=== PATIENT | female | born 1975 | race Caucasian/White ===

== ENCOUNTER → 2017-05-31 23:25 | Outpatient (CLI) | payer MEDICAID, SELFPAY | PROVIDERS: Family Provider Family Medicine; PCP Family Medicine; Visit Provider Family Medicine | DX: G47.10 Hypersomnia, unspecified (principal); R06.83 Snoring | CPT/HCPCS: 95810 ==

== ENCOUNTER → 2017-06-14 20:23 | Outpatient (CLI) | payer MEDICAID, SELFPAY | PROVIDERS: Family Provider Family Medicine; PCP Family Medicine; Visit Provider Family Medicine | DX: G47.33 Obstructive sleep apnea (adult) (pediatric) (principal); G47.10 Hypersomnia, unspecified; R06.83 Snoring | CPT/HCPCS: 95811 ==

== ENCOUNTER → 2017-07-01 18:54 | Outpatient (CLI) | payer MEDICAID, SELFPAY | PROVIDERS: Family Provider Family Medicine; PCP Family Medicine; Visit Provider Nurse Practitioner Women's Health | DX: N76.0 Acute vaginitis (principal); N89.8 Other specified noninflammatory disorders of vagina | CPT/HCPCS: 87070; 87086; 87088; 87205 ==

== ENCOUNTER 2017-10-14 02:34 | Emergency (ER) | payer MEDICAID, SELFPAY ==
[2017-10-14 02:34] VITALS: BP 124/87; PULSE 67; RESP 16; TEMP 36.7; O2SAT 100; BMI 28.5
--- NOTE | 2017-10-14 04:04 | ED.DEP ---
ED Disposition - Plan for ED Patient: Chief Complaint: Dental Instructions: ED Tooth Pain Prescriptions: Oxycodone HCl/Acetaminophen [Percocet 5/325] 1 tablet PO Q6H PRN PRN 3 Days #8 tablet PRN Reason: Pain Referrals: Hollie Salazar DO [Primary Care Provider] -
--- NOTE | 2017-10-14 04:08 | ED.DCSUM_ITS ---
- ER Visit Summary Date of Service: 10/14/17 Chief Complaint: Dental pain History of Present Illness: The patient is a 42 F presenting with dental pain. She states it started on . She called her dentist and was put on amoxicillin. She states she took a Vicodin which she had left over at home. She states this did not help her pain. She denies fever or swelling. She is concerned about possibility of an abscessed tooth. Denies other complaints. Physical Examination: Vitals are stable. Patient is afebrile. Alert no acute distress. HEENT exam left lower molar tenderness to palpation with no surrounding fluctuance. No sublingual edema. Neck is supple. Lungs are clear and equal bilaterally. Heart is regular rate and rhythm. Extremities are unremarkable. Skin is warm and dry. Remainder of exam is unremarkable. Emergency Department Course and Treatment: Dental block was performed. Patient had some improvement. She is advised to continue her amoxicillin until complete. She is given a short course of Percocet. Advised to follow-up with her dentist. Advised return to ED if worsening complaints. Disposition: Discharge home Impression: Odontalgia This note was generated with [employer] dictation software. It may contain incorrect words, spelling, and punctuation that were not noted in review of the chart prior to signing ED Disposition - Plan for ED Patient: Chief Complaint: Dental Instructions: ED Tooth Pain Prescriptions: Oxycodone HCl/Acetaminophen [Percocet 5/325] 1 tablet PO Q6H PRN PRN 3 Days #8 tablet PRN Reason: Pain Referrals: Hollie Salazar DO [Primary Care Provider] -
[2017-10-14 04:24] VITALS: BP 120/80; PULSE 65; RESP 17; O2SAT 99
[2017-10-14] MEDS: oxyCODONE 5 MG Tablet PO (04:31)
== END 2017-10-14 04:32 | disposition home or self-care (01) ==
LOC: ED 03:38
PROVIDERS: Emergency Provider Emergency Medicine; Family Provider Family Medicine; PCP Family Medicine
DX: K08.89 Other specified disorders of teeth and supporting structures (principal); Z79.899 Other long term (current) drug therapy
CPT/HCPCS: 64402; 99283

== ENCOUNTER 2018-03-04 10:58 | Emergency (ER) | payer SELFPAY ==
[2018-03-04] VITALS (10 sets, daily range): BP systolic 102–139; BP diastolic 68–73; PULSE 60–94; RESP 14–18; TEMP 36.6; O2SAT 96–100; BMI 27.4
[2018-03-04 11:28] LABS: Absolute Lymphocyte Count 1.32 X10^3/ul (0.83-4.51); Absolute Neutrophil Count 3.3 X10^3/uL (2.0-7.7); Basophil# 0.01 X10^3/uL; Basophil% 0.2 % (0-1); Eosinophil# 0.11 X10^3/uL; Eosinophils% 2.2 % (0-5); Hematocrit 43.1 % (37-47); Hemoglobin 14.6 g/dl (12.0-15.0); Lymphocyte # 1.32 X10^3/ul (4.0); Mean Corp Hgb Conc 33.9 g/gl (32-36); Mean Corpuscular Volume 94.5 fL (81-99); Mean Platelet Vol. 10.2 fl (6.2-12.0); Monocyte# 0.34 X10^3/uL; Monocyte% 6.7 % (0-10); Neutrophil # 3.29 X10^3/uL (2.7-7.7); Neutrophil % 64.7 % (47-70); Platelet Count 227 K/mm3 (150-450); RBC Distribution Width CV 13.2 % (11.6-14.6); RBC Distribution Width SD 43.9 fl (35.1-43.9); Red Blood Count 4.56 M/mm3 (4.2-5.4); White Blood Count 5.1 K/mm3 (4.4-11.0)
[2018-03-04 11:31] LABS: POSITIVE COUNT NO; POSITIVE DIFFERENTIAL NO; POSITIVE MORPHOLOGY NO
[2018-03-04 11:41] LABS: Anion Gap 5 (5-15); BUN 9 mg/dL (7-18); Calcium,Total 8.9 mg/dL (8.5-10.1); Chloride 105 mmol/L (98-107); Creatinine, Serum 0.82 mg/dL (0.55-1.02); EST Glomerular Filtration Rate 82 mL/min (>60); Est Glom Filt Rate - Afr Amer 100 mL/min (>60); Estimated Creatinine Clearance 78.75 ml/min; Glucose 122 mg/dL (74-106); Potassium 3.6 mmol/L (3.5-5.1); Sodium Level 137 mmol/L (136-145)
[2018-03-04 12:06] LABS: Alcohol, Blood (Medical)-Serum < 3.0 mg/dL
[2018-03-04 13:00] LABS: Amphetamine Urine VISTA NEGATIVE (<1000 ng/mL); Barbiturate Urine VISTA NEGATIVE (< 200 ng/mL); Benzodiazepine Urine VISTA NEGATIVE (< 200 ng/mL); Cocaine Urine VISTA NEGATIVE (< 300 ng/mL); Ecstacy Urine VISTA POSITIVE (< 500 ng/mL); Methadone Urine VISTA NEGATIVE (< 300 ng/mL); PCP Urine VISTA NEGATIVE (< 25 ng/mL); THC Urine VISTA NEGATIVE (< 50 ng/mL); Vista UDS pH Range 6
[2018-03-04 13:04] LABS: Pregnancy, Serum, hCG Quali. NEGATIVE Negative (0-9 Nonpreg)
--- NOTE | 2018-03-04 13:09 | ED.RN ---
GRACE WITH CRISIS WILL BE OVER TO EVAL THE PT.
--- NOTE | 2018-03-04 13:49 | ED.VISSUMM ---
- ER Visit Summary Date of Service: 03/04/18 Chief Complaint: Depression with suicidal ideation History of Present Illness: The patient is a 42 F who has history of depression since age of 17. She attempted to commit suicide by overdose at the age of 17. She was hospitalized at that time. She is not been hospitalized since. She states symptoms got worse December 22. On December 22 her 18-year-old daughter moved out of the house and is not spoken with her. She was terminated from her job early January. Past 24 hours she has had suicidal thoughts with intent of overdosing, getting in her car and closing the garage. She also states she would purchase fentanyl to commit suicide. She is . She is been for 10 years. She does have a 19-year-old daughter from first marriage who is presently a college. She denies drug use or alcohol use. She reports her has been supportive. She was at a counseling session prior to arrival. She was brought by her casey saw operator because of what was voiced. Physical Examination: Vital signs noted. When I entered the room patient was in hospital gown. She is tearful. She admits to being depressed. There is poverty of speech. She reports disruption in sleep and eating. She is asking for help. She was informed that she will require hospitalization. She understands. Head is atraumatic normocephalic. Pupils are equal round reactive. Extraocular muscles are intact. TMs are pearly white with landmarks noted. Nares patent with no drainage. Posterior pharynx without erythema or exudate. Uvula is midline. There is no dysphonia or dysphasia. Trachea is midline. There is no stridor with auscultation of the neck. Heart is regular without murmur, gallop or rub. S1 and S2 are normal. Lungs are clear to auscultation with good movement of air bilaterally. Abdomen is soft nontender bowel sounds are present normal. Patient is alert and oriented ?3. Motor is 5 over 5. Sensory is intact. DTRs are symmetric with no clonus or Babinski sign. Cranial 2 through 12 are intact. Cerebellar testing is normal. No evidence of self injury prior or recently. Test Results: CBC, basic metabolic panel are normal. was normal which one would expect and she is status post hysterectomy. Alcohol was negative. Tox was positive for methamphetamine. This may be a false positive secondary to Wellbutrin. Also will need to ask if she has taken any [id number] medications for nasal congestion Emergency Department Course and Treatment: Appropriate labs, history and physical for medical clearance for psychiatric admission for depression with suicide ideation Treatment Plan: Mental health clinical social work therapist to see patient for inpatient care Disposition: Transfer to psychiatric facility Impression: Major depression with suicidal ideation This note was generated with [employer] dictation software. It may contain incorrect words, spelling, and punctuation that were not noted in review of the chart prior to signing ED Disposition - Plan for ED Patient: Chief Complaint: Suicidal Referrals: Hollie Salazar DO [Primary Care Provider] -
--- NOTE | 2018-03-04 13:53 | ED.DCSUM_ITS ---
- ER Visit Summary Date of Service: 03/04/18 Chief Complaint: Depression with suicidal ideation History of Present Illness: The patient is a 42 F who has history of depression since age of 17. She attempted to commit suicide by overdose at the age of 17. She was hospitalized at that time. She is not been hospitalized since. She states symptoms got worse December 22. On December 22 her 18-year-old daughter moved out of the house and is not spoken with her. She was terminated from her job early January. Past 24 hours she has had suicidal thoughts with intent of overdosing, getting in her car and closing the garage. She also states she would purchase fentanyl to commit suicide. She is . She is been for 10 years. She does have a 19-year-old daughter from first marriage who is presently a college. She denies drug use or alcohol use. She reports her has been supportive. She was at a counseling session prior to arrival. She was brought by her heel caser because of what was voiced. Physical Examination: Vital signs noted. When I entered the room patient was in hospital gown. She is tearful. She admits to being depressed. There is poverty of speech. She reports disruption in sleep and eating. She is asking for help. She was informed that she will require hospitalization. She understands. Head is atraumatic normocephalic. Pupils are equal round reactive. Extraocular muscles are intact. TMs are pearly white with landmarks noted. Nares patent with no drainage. Posterior pharynx without erythema or exudate. Uvula is midline. There is no dysphonia or dysphasia. Trachea is midline. There is no stridor with auscultation of the neck. Heart is regular without murmur, gallop or rub. S1 and S2 are normal. Lungs are clear to auscultation with good movement of air bilaterally. Abdomen is soft nontender bowel sounds are present normal. Patient is alert and oriented ?3. Motor is 5 over 5. Sensory is intact. DTRs are symmetric with no clonus or Babinski sign. Cranial 2 through 12 are intact. Cerebellar testing is normal. No evidence of self injury prior or recently. Test Results: CBC, basic metabolic panel are normal. was normal which one would expect and she is status post hysterectomy. Alcohol was negative. Tox was positive for methamphetamine. This may be a false positive secondary to Wellbutrin. Also will need to ask if she has taken any tzoc-kiz-eluxvur me dications for nasal congestion Emergency Department Course and Treatment: Appropriate labs, history and physical for medical clearance for psychiatric admission for depression with suicide ideation Treatment Plan: Mental health social work therapist to see patient for inpatient care Disposition: Transfer to psychiatric facility Impression: Major depression with suicidal ideation This note was generated with [employer] dictation software. It may contain incorrect words, spelling, and punctuation that were not noted in review of the chart prior to signing ED Disposition - Plan for ED Patient: Chief Complaint: Suicidal Referrals: Hollie Salazar DO [Primary Care Provider] -
--- NOTE | 2018-03-04 18:46 | EKG12_ITS ---
Test Reason : [facility] [place] Blood Pressure : / mmHG Vent. Rate : 074 BPM Atrial Rate : 074 BPM P-R Int : 152 ms QRS Dur : 088 ms QT Int : 380 ms P-R-T Axes : 055 047 049 degrees QTc Int : 421 ms Normal sinus rhythm Normal ECG Confirmed by MASON TELLO, ROLANDO ([id number]), fashion editor KRANTHI GARCIA ([id number] on 03/07/2018 2:18:50 PM Referred By: OLIVE LYNN/WILFRIDO Confirmed By:ROLANDO CUEVAS MD
--- NOTE | 2018-03-04 19:18 | ED.RN ---
PT IS ON CELL PHONE TALKING TO SPOUSE AND REQUESTED A FINGER NAIL FILE TO SMOOTH AN EDGE ON A NAIL. THIS NURSE OVERHEARD PT AND EXPLAINED THAT SHE MAY HAVE A BAND-AID TO COVER THE NAIL TO PROTECT IT FROM SNAGGING, BUT NO FINGER NAIL FILE WILL BE ALLOWED. PT VERBALIZED ADEQUATE UNDERSTANDING AND REFUSED BAND-AID.
[2018-03-04 19:21] LABS: AST(SGOT) 17 U/L (15-37); Alanine Aminotransfer ALT/SGPT 30 U/L (13-56); Alkaline Phosphatase 50 U/L (45-117); Bilirubin, Direct 0.15 mg/dL (0.00-0.30); Globulin 3.8 g/dL (2.2-4.2); Protein, Total 7.8 g/dL (6.4-8.2)
--- NOTE | 2018-03-04 20:54 | ED.RN ---
CALLED FOR TRANSPORT TO [facility], PER CHUY NASH HAS AN AGREEMENT TO TRANSPORT PATIENTS WITHOUT INSURANCE, AFTER BEING REQUIRED TO CONFIRM THIS BY GRAZYNA NASH, THEY DECLINED TO TAKE INFORMATION OR SCHEDULE A TRANSPORT UNTIL THE MORNING OF 03/05/18.
[2018-03-04] MEDS: clonazePAM 1 MG Tablet PO (21:17)
--- NOTE | 2018-03-04 21:26 | ED.RN ---
Addendum entered by Wong Archuleta 03/04/18 22:05: deleted care and insert car in line there of paragraph. mick archuleta rn [id number] Original Note: pt arrives to ed with suicidal ideation. she states that I have multiple idea, but no set plan. After asked for clarification she stated I would leave the care running in the garage or I could get that fentanyl stuff you hear about on the street. afterwards she stated i wouldn't be able to find the fentanyl. she admitted that she talks to her about these thoughts. tried to hurt her self by ingesting her fathers sleeping pills at age 17. per pt the cause to her current mental health crisis is loss of contact with her 18 year old daughter. child left home due to a strained relationship per mother. she also lost her job due to calling off to often per pt. mick archuleta, carlin [id number]
--- NOTE | 2018-03-04 22:06 | ED.RN ---
PT'S BROUGHT IN CLOTHING FOR PT WHEN SHE IS TRANSFERRED TO [facility]. CLOTHING REMOVED FROM PT'S ROOM AND PLACED IN BELONGING TOTE.
[2018-03-05] VITALS (8 sets, daily range): BP systolic 107–124; BP diastolic 70–79; PULSE 66–87; RESP 12–18; O2SAT 97–100
[2018-03-05] MEDS: Acetaminophen 500 MG Tablet 1000 MG PO (01:13)
--- NOTE | 2018-03-05 07:56 | ED.RN ---
Pt alert, cooperative, and pleasant. Given coffee and aware waiting for ride. Sitter present.
--- OUTSIDE RECORDS SUMMARY | 2018-04-16 04:01 | XMS RPT_ITS ---
:1975 Author Organization OHIP Care Team Providers Name Role Phone Hollie Salazar Attending Unavailable Malys, Hollie Primary Care Unavailable Malys, Hollie Attending Unavailable Malys, Hollie Primary Care Unavailable Pam Rucker Attending Unavailable Bernardinoys, Hollie Referring Unavailable Malys, Hollie Primary Care Unavailable Pam Rucker Attending Unavailable Bernardinoys, Hollie Primary Care Unavailable Pam Rucker Referring Unavailable Malys, Hollie Primary Care Unavailable Rosalba Alex Attending Unavailable Malys, Hollie Primary Care Unavailable Neal Lynn Attending Unavailable PROBLEMS PROBLEMS DATE TYPE CONDITION / CODE ATTENDING STATUS SOURCE 11/12/2017 Unknown K08.89 - Other [place], Active [place] specified disorders [facility] and Hospital supporting structures Repository / K08.89(ICD-10) 07/04/2017 Unknown N76.0 - Acute [place], Pam Active [place] vaginitis / Community N76.0(ICD-10) Hospital Repository 07/04/2017 Unknown N89.8 - Other [place], Pam Active [facility] specified [facility] noninflammatory [facility] disorders of vagina / Repository N89.8(ICD-10) 07/01/2017 Unknown R30.0 - Dysuria / [place], Pam Active [place] R30.0(ICD-10) [facility] Repository PROCEDURES PROCEDURES No Procedure Records FoundRESULTS RESULTS 12 LEAD ELECTROCARDIOGRAM Observed: 03/07/2018 Status: F Source: [place] 2:19 PM [facility] REPOSITORY [facility] Cardiovascular Services [address] [place] [address] 12 Lead EKG 03/04/18 1851 MR#: [id number] Acct: [id number] Name: YU CALDWELL Rep #: [id number] : 1975 42 From: Yonathan Ennis MD Attending Dr: Status: DEP ER Ordering Dr: Harjit Bajwa MD Date: 03/04/18 Location: ED Sex: F C Admitted: Test Reason : MHC Blood Pressure : / mmHG Vent. Rate : 074 BPM Atrial Rate : 074 BPM P-R Int : 152 ms QRS Dur : 088 ms QT Int : 380 ms P-R-T Axes : 055 047 049 degrees QTc Int : 421 ms Normal sinus rhythm Normal ECG Confirmed by YONATHAN ENNIS MD ([id number]), news copy editor KRANTHI GARCIA ([id number]) on 03/07/2018 2:18:50 PM Referred By: OLIVE LYNN/WILFRIDO Confirmed By:YONATHAN ENNIS MD 03/07/18 1418 Date Yonathan Ennis MD CC: Harjit Bajwa MD; Hollie Salazar DO; Neal Lynn MD Signed EMERGENCY DEPARTMENT Observed: 03/04/2018 Status: F Source: [place] SUMMARY 1:53 PM [facility] REPOSITORY [facility] Medical Records Department [address] [place] [address] Emergency Department Summary 03/04/18 1349 MR#: [id number] Acct: [id number] Name: YU CALDWELL Rep #: [id number] : 1975 42 From: Neal Lynn MD PCP: Hollie Salazar DO Status: REG ER - ER Visit Summary Date of Service: 03/04/18 Chief Complaint: Depression with suicidal ideation History of Present Illness: The patient is a 42 F who has history of depression since age of 17. She attempted to commit suicide by overdose at the age of 17. She was hospitalized at that time. She is not been hospitalized since. She states symptoms got worse December 22. On December 22 her 18-year-old daughter moved out of the house and is not spoken with her. She was terminated from her job early January. Past 24 hours she has had suicidal thoughts with intent of overdosing, getting in her car and closing the garage. She also states she would purchase fentanyl to commit suicide. She is . She is been for 10 years. She does have a 19-year-old daughter from first marriage who is presently a college. She denies drug use or alcohol use. She reports her has been supportive. She was at a counseling session prior to arrival. She was brought by her returned case inspector because of what was voiced. Physical Examination: Vital signs noted. When I entered the room patient was in hospital gown. She is tearful. She admits to being depressed. There is poverty of speech. She reports disruption in sleep and eating. She is asking for help. She was informed that she will require hospitalization. She understands. Head is atraumatic normocephalic. Pupils are equal round reactive. Extraocular muscles are intact. TMs are pearly white with landmarks noted. Nares patent with no drainage. Posterior pharynx without erythema or exudate. Uvula is midline. There is no dysphonia or dysphasia. Trachea is midline. There is no stridor with auscultation of the neck. Heart is regular without murmur, gallop or rub. S1 and S2 are normal. Lungs are clear to auscultation with good movement of air bilaterally. Abdomen is soft nontender bowel sounds are present normal. Patient is alert and oriented 3. Motor is 5 over 5. Sensory is intact. DTRs are symmetric with no clonus or Babinski sign. Cranial 2 through 12 are intact. Cerebellar testing is normal. No evidence of self injury prior or recently. Test Results: CBC, basic metabolic panel are normal. was normal which one would expect and she is status post hysterectomy. Alcohol was negative. Tox was positive for methamphetamine. This may be a false positive secondary to Wellbutrin. Also will need to ask if she has taken any [id number] medications for nasal congestion Emergency Department Course and Treatment: Appropriate labs, history and physical for medical clearance for psychiatric admission for depression with suicide ideation Treatment Plan: Mental health social and political studies professor to see patient for inpatient care Disposition: Transfer to psychiatric facility Impression: Major depression with suicidal ideation This note was generated with Hango dictation software. It may contain incorrect words, spelling, and punctuation that were not noted in review of the chart prior to signing ED Disposition - Plan for ED Patient: Chief Complaint: Suicidal Referrals: Hollie Salazar, DO [Primary Care Provider] - What to do if you have Problems For any increased pain, shortness of breath, bleeding, nausea or vomiting, chest pain, or any unexpected problems, contact your Primary Care Provider. Call [facility] ([phone]) or report to the closest Emergency Room. Call 911 if necessary. 03/04/18 1353 <Electronically signed by Neal Lynn MD> Date Neal Lynn MD Cosigner Signature (If Indicated): Date CC: Hollie Salazar DO URINE DRUG SCREEN Collected: 03/04/2018 Status: F Source: [place] (VISTA) 12:07 PM [facility] REPOSITORY TYPE CODE TESTS RESULT OUT OF RANGE REFERENCE UNITS LAB L505.0075 TO BE Normal CONFIRMED Result Comment: CONFIRMATORY TESTING FOR ALL POSITIVE URINE DRUG SCREEN RESULTS WILL ONLY BE SENT OUT UPON PHYSICIAN ORDER. VISTA Urine Drug Screen methods provide only preliminary analytical test results. A more specific alternate chemical method must be used in order to obtain a confirmed analytical result. Gas chromatography/mass spectrometery (GC/MS) is the preferred confirmatory method. Clinical consideration and professional judgement should be applied to any drug of abuse test result, particularly when preliminary positive results are used. URINE TCA TESTING MUST BE ORDERED SEPARATELY. USE TEST MNEMONIC: [facility] LAB L505.5005 VISTA UDS PH 6 Normal LAB L505.5015 <1000 ng/mL AMPHETAMINES Normal NEGATIVE LAB L505.5025 < 200 ng/mL BARBITIURATES Normal NEGATIVE LAB L505.5035 < 200 ng/mL BENZODIAZIPINE Normal NEGATIVE LAB L505.5045 < 300 ng/mL COCAINE Normal NEGATIVE LAB L505.5055 < 500 High ng/mL ECSTACY POSITIVE LAB L505.5065 < 300 ng/mL METHADONE Normal NEGATIVE LAB L505.5075 < 300 ng/mL OPIATES Normal NEGATIVE LAB L505.5085 < 25 ng/mL PCP Normal NEGATIVE LAB L505.5095 < 50 ng/mL THC Normal NEGATIVE Performed By: #### L505.5000 #### [facility] [address] [place], [address] CBC W/DIFF, AUTOMATED Collected: 03/04/2018 Status: F Source: [place] 11:15 AM [facility] REPOSITORY TYPE CODE TESTS RESULT OUT OF RANGE REFERENCE UNITS LAB L100.1000 4.4-11.0 K/mm3 Normal WBC 5.1 LAB L100.1200 4.2-5.4 M/mm3 Normal RBC 4.56 LAB L100.1300 12.0-15.0 g/dl Normal HGB 14.6 LAB L100.1400 37-47 % Normal HCT 43.1 LAB L100.1500 81-99 fL Normal MCV 94.5 LAB L100.1600 27.0-32.0 pg Normal MCH 32.0 LAB L100.1700 32-36 g/gl Normal MCHC 33.9 LAB L100.1810 11.6-14.6 % Normal RDW CV 13.2 LAB L100.1820 35.1-43.9 fl Normal RDW SD 43.9 LAB L100.1900 150-450 K/mm3 Normal PLT 227 LAB L100.2000 6.2-12.0 fl Normal MPV 10.2 LAB L100.2100 47-70 % Normal NEUT% 64.7 LAB L100.2200 19-41 % Normal LY% 26.0 LAB L100.2300 0-10 % Normal MONO% 6.7 LAB L100.2400 0-5 % Normal EO% 2.2 LAB L100.2500 0-1 % Normal BASO% 0.2 LAB L100.2550 0.0-0.9 % Normal IM GRAN % 0.200 Result Comment: IG% - Immature Granulocytes (promyelocytes, myelocytes and metamyelocytes) > 1% indicates that a LEFT SHIFT is Present. LAB L100.2620 2.0-7.7 X10 3/uL Normal Absolute Neut 3.3 LAB L100.2720 0.83-4.51 X10 3/ul Normal Absolute Lymph 1.32 Performed By: #### L100.0100, L700.6800 #### [facility] [address] [facility] [place], [address] ,SERUM,HCG QUALI. Collected: Status: F Source: [place] 03/04/2018 11:15 AM [facility] REPOSITORY TYPE CODE TESTS RESULT OUT OF REFERENCE UNITS RANGE LAB L700.6700 =>Qualitative mIU/mL Normal HCG Qual < 1 triggr LAB L700.7000 0-9 Nonpreg Negative Normal HCGSQUAL NEGATIVE Performed By: #### L100.0100, L700.6800 #### [facility] [address] [facility] [place], [address] BASIC METABOLIC Collected: 03/04/2018 Status: F Source: [place] PROFILE (BMP) 11:15 AM [facility] REPOSITORY TYPE CODE TESTS RESULT OUT OF RANGE REFERENCE UNITS LAB L501.0100 74-106 mg/dL High GLU 122 Result Comment: Fasting Glucose result from 100 to 125 mg/dL suggests IMPAIRED HOMEOSTASIS per A.D.A. criteria. Please note revised GLUCOSE reference range effective 2017. LAB L501.1000 7-18 mg/dL Normal BUN 9 LAB L501.1100 0.55-1.02 mg/dL Normal CREAT,SERUM 0.82 Result Comment: The validity of the calculated GFR AND GFRAA in patients over 70 years has not been determined. Clinical correlation is essential. LAB L501.1110 >60 mL/min Normal EST GFR 82 Result Comment: Non- GFR Calc LAB L501.1115 >60 mL/min Normal EST GFR - AA 100 Result Comment: GFR Calc LAB L501.1255 ml/min Normal Estimated CRCL 78.75 LAB L501.1300 10-20 RATIO Normal BUN/CRE 11.0 LAB L501.2200 8.5-10 mg/dL Normal .1 CA 8.9 LAB L501.5300 136-14 mmol/L Normal 5 NA 137 LAB L501.5600 3.5-5. mmol/L Normal 1 K 3.6 LAB L501.5900 98-107 mmol/L Normal CL 105 LAB L501.6100 21.0-3 mmol/L Normal 2.0 CO2 27.0 LAB L501.6200 5-15 Normal GAP 5 Performed By: #### L500.2500, L501.9100 #### [facility] [address] [facility] [place], [place], [id number] ALCOHOL, BLOOD Collected: 03/04/2018 Status: F Source: [place] (MEDICAL)-SERUM 11:15 AM [facility] REPOSITORY TYPE CODE TESTS RESULT OUT OF RANGE REFERENCE UNITS LAB L501.9100 mg/dL Normal SERUM < 3.0 ETOH Result Comment: The serum:whole blood ethanol ratio is approximately 1.14 and varies slightly with hematocrit. Medical Alcohol reference interval and critical value in non-tolerant individuals; 50 - 100 Impairment 100 Intoxication 100 - 250 Severe Poisoning 250 - 400 Deep/possible fatal coma Performed By: #### L500.2500, L501.9100 #### [facility] [address] [place], [place], [id number] LIVER PROFILE Collected: 03/04/2018 Status: F Source: [place] 11:15 AM [facility] REPOSITORY TYPE CODE TESTS RESULT OUT OF RANGE REFERENCE UNITS LAB L501.1500 6.4-8.2 g/dL Normal T PROT 7.8 LAB L501.1800 3.2-5.0 g/dL Normal ALB 4.0 LAB L501.1950 2.2-4.2 g/dL Normal GLOB 3.8 LAB L501.4100 15-37 U/L Normal AST 17 LAB L501.4305 45-117 U/L Normal ALK P 50 LAB L501.4405 13-56 U/L Normal ALT 30 LAB L501.4600 0.20-1.00 mg/dL Normal T BILI 0.40 LAB L501.4700 0.00-0.30 mg/dL Normal D BILI 0.15 Performed By: #### L500.3400 #### [facility] [address] [facility] [place], [address] EMERGENCY DEPARTMENT Observed: 10/14/2017 Status: F Source: [place] SUMMARY 4:08 AM [facility] REPOSITORY [facility] Medical Records Department [address] [facility] [place] [address] Emergency Department Summary 10/14/17 0406 MR#: [id number] Acct: [id number] Name: YU CALDWELL Rep #: [id number] : 1975 42 From: Rosalba Alex MD PCP: Hollie Salazar DO Status: REG ER - ER Visit Summary Date of Service: 10/14/17 Chief Complaint: Dental pain History of Present Illness: The patient is a 42 F presenting with dental pain. She states it started on . She called her dentist and was put on amoxicillin. She states she took a Vicodin which she had left over at home. She states this did not help her pain. She denies fever or swelling. She is concerned about possibility of an abscessed tooth. Denies other complaints. Physical Examination: Vitals are stable. Patient is afebrile. Alert no acute distress. HEENT exam left lower molar tenderness to palpation with no surrounding fluctuance. No sublingual edema. Neck is supple. Lungs are clear and equal bilaterally. Heart is regular rate and rhythm. Extremities are unremarkable. Skin is warm and dry. Remainder of exam is unremarkable. Emergency Department Course and Treatment: Dental block was performed. Patient had some improvement. She is advised to continue her amoxicillin until complete. She is given a short course of Percocet. Advised to follow-up with her dentist. Advised return to ED if worsening complaints. Disposition: Discharge home Impression: Odontalgia This note was generated with Hango dictation software. It may contain incorrect words, spelling, and punctuation that were not noted in review of the chart prior to signing ED Disposition - Plan for ED Patient: Chief Complaint: Dental Instructions: ED Tooth Pain Prescriptions: Oxycodone HCl/Acetaminophen [Percocet 5/325] 1 tablet PO Q6H PRN PRN 3 Days #8 tablet PRN Reason: Pain Referrals: Hollie Salazar, [Primary Care Provider] - What to do if you have Problems For any increased pain, shortness of breath, bleeding, nausea or vomiting, chest pain, or any unexpected problems, contact your Primary Care Provider. Call [facility] ([phone]) or report to the closest Emergency Room. Call 911 if necessary. 10/14/17407 <Electronically signed by Rosalba Alex MD> Date Rosalba Alex MD Cosigner Signature (If Indicated): Date CC: Hollie Salazar DO DISCHARGE INSTRUCTION Observed: 10/14/2017 Status: F Source: [place] 4:05 AM [facility] REPOSITORY [facility] Medical Records Department [address] [place] [address] Discharge Instruction 10/14/17 040 MR#: [id number] Acct: [id number] Name: YU CALDWELL Rep #: [id number] : 1975 42 From: Rosalba Alex MD PCP: Hollie Salazar DO Status: REG ER ED Disposition - Plan for ED Patient: Chief Complaint: Dental Instructions: ED Tooth Pain Prescriptions: Oxycodone HCl/Acetaminophen [Percocet 5/325] 1 tablet PO Q6H PRN PRN 3 Days #8 tablet PRN Reason: Pain Referrals: Hollie Salazar, DO [Primary Care Provider] - What to do if you have Problems For any increased pain, shortness of breath, bleeding, nausea or vomiting, chest pain, or any unexpected problems, contact your Primary Care Provider. Call [facility] ([phone]) or report to the closest Emergency Room. Call 911 if necessary. 10/14/17 0405 <Electronically signed by Rosalba Alex MD> Date Rosalba Alex MD Cosigner Signature (If Indicated): Date CC: Hollie Salazar DO Observed: 07/01/2017 Status: F Source: [place] CULTURE, GENITAL 6:54 PM [facility] COMPREHENSIVE REPOSITORY Reason for Exam: vaginitis Gram Stain Score = 0 Interpretation: 0-3 Normal, 4-6 Intermediate, 7-10 Positive BV Gram Stain 1+ White Blood Cells 4+ Gram positive rods Gent Cult Comp Normal vaginal sandeep isolated. No yeast, Gardnerella, Neisseria or beta-hemolytic Streptococcus isolated. Performed By: #### M100.1600 #### [facility] [address] [place] [address] [address] [place], [place], [address] Observed: 07/01/2017 Status: F Source: [place] CULTURE, URINE 6:54 PM [facility] REPOSITORY Urine Culture There are no CLSI standards for interpretation of this Drug/Organism combination. ORGANISM 1: Lactobacillus species [place] Count 50,000-80,000 Performed By: #### M100.0650 #### [facility] [address] [place] [address] [place] [place], [place], [address] BRICK CARRIER OFFICE VISIT Observed: 07/01/2017 Status: F Source: [place] REPORT 9:53 AM [facility] REPOSITORY [facility] [address] [place], [place] [address] OFFICE VISIT Date of Service: 07/01/17 MR#: [id number] Acct: [id number] Name: YU CALDWELL Rep #: [id number] : 1975 Provider: MORELIA Rucker Age/Sex: 42/F Location: [facility] Status: Signed Intake Vital Signs07/01/17 Height 5 ft 5 in 07/01/17 Weight: 167 lb 07/01/17 Body Mass Index (BMI) 27.8 07/01/17 Blood Pressure 116/72 Intake Visit Reasons: Vaginal Irritation Chief Complaint: Vaginal Irritation Movie Operator Required: No Is patient in pain?: No Allergies Sulfa (Sulfonamide Antibiotics) Allergy (Verified 07/01/17 09:10) Swelling Medications Clonazepam [Klonopin] 0.5 mg PO Q8H PRN PRN 04/06/15 [History Confirmed 07/01/17] Multivitamins,Ther W-Minerals [Multivitamin With Minerals] 1 tab PO DAILY 04/06/15 [History Confirmed 07/01/17] buPROPion tablets [Wellbutrin] 100 mg PO DAILY 04/06/15 [History Confirmed 07/01/17] Is last menstrual period known: No Post menopausal: No Patient : No : No PFSH Medical History Abnormal Pap smear of cervix (Acute) Anxiety and depression (Acute) Surgical History History of LAVH (Acute) History of tubal ligation (Acute) Family History Grandmother Colon cancer Unknown Heart disease Social History Smoking Status: Former smoker alcohol intake: current details: social substance use type: does not use caffeine: Yes what type of physical activity do you participate in: walking seatbelt use: always do you feel safe at home: Yes additional social history: [employer] Patient work for [employer] HPI Vaginal Irritation: Details: YU CALDWELL is a 42 year old who presents for vaginal irritation. Took 2 doses diflucan per PCP without benefit. OTC vagisil caused more burning. No discharge or odor. Had hysterectomy almost 3 years ago. Ovaries remain. and denies STD concerns Urine with slight odor Pregancy History 2 Elective abortions Hx Para 2 Spontaneous abortions Past Pregnancies Del. DatName GA/WeeksOutcome Route [facility] LgAnestheNorth[facility] LocaProviderFOB e ht en ia tn Unknown 1998 Vasiliy ey Unknown 1999 Serg ssa Exam Const General: cooperative, no acute distress Nutritional Appearance: well nourished Orientation: oriented x3 General: bladder normal to palpation External Female Exam: normal external appearance, normal appearance of the urethra Urethra: normal appearance of the urethra Speculum Exam - Vagina: normal appearance of the vagina, normal vaginal discharge, nontender, no lesions Speculum Exam - Cervix: other (Madan BV and comp vag culture collected), cervix absent Bimanual Exam- Vagina AND Uterus: bladder normal to palpation, normal bimanual exam, uterus absent, other (some tenderness with exam in vagina; MADAN BV and comp vaginal culture) Bimanual Exam- Adnexa, other: normal adnexae, no adnexal masses, adnexae non-tender Results BMSUA Office Urine Color YELLOW Last Edit by Celine Mcgregor on 07/01/17 09:37 Office Urine Clarity Clear Last Edit by Celine Mcgregor on 07/01/17 09:37 Assessment AND Plan Problems 1. Vaginitis and vulvovaginitis N76.0 Plan Urine dip X 10 positive blood, send culture MADAN BV negative. Comprehensive vag culture pending-call results. If negative consider estrace cream T[employer]CH[employer]IC skin care reviewed, use of cortaid cream. Orders Orders: Coding Level of Care Code Off vis,est,level 3 Diagnoses Vaginitis and vulvovaginitis N76.0 07/01/17 0953 <Electronically signed by Pam SCHULTE> Date Pam SCHULTE Cosigner Signature: Date (if applicable) CC: PROGRESS Observed: 06/12/2017 Status: COMPLETED Source: [place] 6:23 PM [facility] REPOSITORY HNO ID: [id number] Author: Renato Eldridge Service: (none) Author Type: Nurse Practitioner Type: Progress Notes Filed: 06/12/2017 6:40 PM Note Text: Subjective HPI HPI uY Caldwell is a 42 year old female who presents today for CC of sinus pressure/headache. This started 2 weeks. Has tried nasocort without relief. Symptoms are worsened by nothing. Risk factors gets yearly sinus infections. Denies possibility of being . Review of Systems Constitutional: Negative for chills, fever and weight loss. HENT: Positive for congestion. Negative for ear pain, nosebleeds and sore throat. Respiratory: Negative for cough, shortness of breath and wheezing. Musculoskeletal: Negative for neck pain. Skin: Negative for itching and rash. Neurological: Positive for headaches. PAST MEDICAL HISTORY Diagnosis Date - Esophagitis, unspecified - Menorrhagia - PMH - PAST MEDICAL HISTORY OF anxiety PAST SURGICAL HISTORY Procedure Laterality Date - EGD W/O BRSH SPECIMEN W/BX 01/03/06 - LIGATE FALLOPIAN TUBE 2000 - PAST SURGICAL HISTORY OF breast lumps removed-benign - VAGINAL HYSTERECTOMY 2015 ALLERGIES Sulfa (Sulfonamide Antibiotics) MEDICATIONS Ibuprofen 200 mg cap Take by mouth as needed. buPROPion (WELLBUTRIN) 100 mg tablet Take 100 mg by mouth twice daily. clonazePAM (KLONOPIN) 0.5 mg tablet Take 0.5 mg by mouth twice daily as needed. naproxen sodium 220 mg cap Take by mouth as needed. phenazopyridine (PYRIDIUM, GERIDIUM) 200 mg tablet Take 0.5 tablets by mouth three times daily as needed. estradiol (ESTRACE) 1 mg tablet Take 1 tablet by mouth once daily. norethindrone (AYGESTIN) 5 mg tablet Take twice daily until bleeding stops then once daily for remainder multivitamin ORAL tablet Take 1 tablet by mouth once daily. FAMILY HISTORY Problem Relation Age of Onset - None Mother - LIVER DISEASE [Other] [OTHER] Father - Colon Cancer Maternal Grandmother Social History Substance Use Topics - Smoking status: Former Smoker Packs/day: 0.50 Years: 10.00 Types: Cigarettes Quit date: 03/08/2007 - Smokeless tobacco: Never Used - Alcohol use Yes Comment: occasionally Blood pressure 110/72, pulse 68, temperature 36.5 ?C (97.7 ?F), temperature source Tympanic, resp. rate 16, weight 75.4 kg (166 lb 3.2 oz), last menstrual period 03/20/2015. Objective Physical Exam Constitutional: She is oriented to person, place, and time and well-developed, well-nourished, and in no distress. Non-toxic appearance. She does not have a sickly appearance. No distress. HENT: Head: Normocephalic and atraumatic. Right Ear: Hearing, external ear and ear canal normal. Tympanic membrane is erythematous (mild). Left Ear: Hearing, tympanic membrane, external ear and ear canal normal. Nose: Right sinus exhibits frontal sinus tenderness. Left sinus exhibits frontal sinus tenderness. Mouth/Throat: Uvula is midline, oropharynx is clear and moist and mucous membranes are normal. Eyes: Conjunctivae and lids are normal. Pupils are equal, round, and reactive to light. Right eye exhibits no discharge. Left eye exhibits no discharge. No scleral icterus. Neck: Trachea normal and normal range of motion. Neck supple. Cardiovascular: Normal rate, regular rhythm and normal heart sounds. Pulmonary/Chest: Effort normal and breath sounds normal. Lymphadenopathy: She has no cervical adenopathy. Neurological: She is alert and oriented to person, place, and time. Skin: No rash noted. She is not diaphoretic. ASSESSMENT/PLAN: 1. Bacterial sinusitis - ICD9: 473.9, 041.9, ICD10: J32.9, B96.89 - Will begin treatment with Augmentin 875 mg PO BID for 10 days - Supportive care with plenty of fluids, rest, and analgesia prn. - Follow up in 3-5 days if symptoms persist or worsen. - AMOXICILLIN 875 MG-POTASSIUM CLAVULANATE 125 MG TABLET Prescription instructions reviewed with patient as applicable. Patient advised if symptoms do not improve or if symptoms worsen sooner, to contact the office for further evaluation by their primary care physician. Potential red flag symptoms discussed with the patient. Reviewed appropriate action plan to take if red flag symptoms occur. Patient agreeable to treatment plan. Renato Eldridge CNP CNOV Observed: 06/12/2017 Status: COMPLETED Source: [place] 6:15 PM [facility] REPOSITORY Office Visit (WSTR) YU CALDWELL ([id number]) 1975 F Date Time Provider Department 06/12/17 6:15 PM RENATO ELDRIDGE (GAYLE) [facility] During your visit today, we recorded the following information about you: Temperature Pulse Respiration Blood pressure 97.7 degrees 68/minute 16/minute 110/72 Weight 75.4 kg Renato Eldridge CNP 06/12/2017 6:40 PM Signed Subjective HPI HPI Yu Caldwell is a 42 year old female who presents today for CC of sinus pressure/headache. This started 2 weeks. Has tried nasocort without relief. Symptoms are worsened by nothing. Risk factors gets yearly sinus infections. Denies possibility of being . Review of Systems Constitutional: Negative for chills, fever and weight loss. HENT: Positive for congestion. Negative for ear pain, nosebleeds and sore throat. Respiratory: Negative for cough, shortness of breath and wheezing. Musculoskeletal: Negative for neck pain. Skin: Negative for itching and rash. Neurological: Positive for headaches. PAST MEDICAL HISTORY Diagnosis Date - Esophagitis, unspecified - Menorrhagia - PMH - PAST MEDICAL HISTORY OF anxiety PAST SURGICAL HISTORY Procedure Laterality Date - EGD W/O BRSH SPECIMEN W/BX 01/03/06 - LIGATE FALLOPIAN TUBE 2000 - PAST SURGICAL HISTORY OF breast lumps removed-benign - VAGINAL HYSTERECTOMY 2016 ALLERGIES Sulfa (Sulfonamide Antibiotics) MEDICATIONS Ibuprofen 200 mg cap Take by mouth as needed. buPROPion (WELLBUTRIN) 100 mg tablet Take 100 mg by mouth twice daily. clonazePAM (KLONOPIN) 0.5 mg tablet Take 0.5 mg by mouth twice daily as needed. naproxen sodium 220 mg cap Take by mouth as needed. phenazopyridine (PYRIDIUM, GERIDIUM) 200 mg tablet Take 0.5 tablets by mouth three times daily as needed. estradiol (ESTRACE) 1 mg tablet Take 1 tablet by mouth once daily. norethindrone (AYGESTIN) 5 mg tablet Take twice daily until bleeding stops then once daily for remainder multivitamin ORAL tablet Take 1 tablet by mouth once daily. FAMILY HISTORY Problem Relation Age of Onset - None Mother - LIVER DISEASE [Other] [OTHER] Father - Colon Cancer Maternal Grandmother Social History Substance Use Topics - Smoking status: Former Smoker Packs/day: 0.50 Years: 10.00 Types: Cigarettes Quit date: 03/08/2007 - Smokeless tobacco: Never Used - Alcohol use Yes Comment: occasionally Blood pressure 110/72, pulse 68, temperature 36.5 ?C (97.7 ?F), temperature source Tympanic, resp. rate 16, weight 75.4 kg (166 lb 3.2 oz), last menstrual period 03/20/2015. Objective Physical Exam Constitutional: She is oriented to person, place, and time and well-developed, well-nourished, and in no distress. Non-toxic appearance. She does not have a sickly appearance. No distress. HENT: Head: Normocephalic and atraumatic. Right Ear: Hearing, external ear and ear canal normal. Tympanic membrane is erythematous (mild). Left Ear: Hearing, tympanic membrane, external ear and ear canal normal. Nose: Right sinus exhibits frontal sinus tenderness. Left sinus exhibits frontal sinus tenderness. Mouth/Throat: Uvula is midline, oropharynx is clear and moist and mucous membranes are normal. Eyes: Conjunctivae and lids are normal. Pupils are equal, round, and reactive to light. Right eye exhibits no discharge. Left eye exhibits no discharge. No scleral icterus. Neck: Trachea normal and normal range of motion. Neck supple. Cardiovascular: Normal rate, regular rhythm and normal heart sounds. Pulmonary/Chest: Effort normal and breath sounds normal. Lymphadenopathy: She has no cervical adenopathy. Neurological: She is alert and oriented to person, place, and time. Skin: No rash noted. She is not diaphoretic. ASSESSMENT/PLAN: 1. Bacterial sinusitis - ICD9: 473.9, 041.9, ICD10: J32.9, B96.89 - Will begin treatment with Augmentin 875 mg PO BID for 10 days - Supportive care with plenty of fluids, rest, and analgesia prn. - Follow up in 3-5 days if symptoms persist or worsen. - AMOXICILLIN 875 MG-POTASSIUM CLAVULANATE 125 MG TABLET Prescription instructions reviewed with patient as applicable. Patient advised if symptoms do not improve or if symptoms worsen sooner, to contact the office for further evaluation by their primary care physician. Potential red flag symptoms discussed with the patient. Reviewed appropriate action plan to take if red flag symptoms occur. Patient agreeable to treatment plan. GAYLE Hanna CNP 06/12/2017 6:34 PM Signed SINUSITIS: You have sinusitis, an infection of the sinus cavities around the nose. This infection usually follows a respiratory illness; it can also be related to allergies, changes in atmospheric pressure (flying, diving), or anything that blocks nasal drainage. Symptoms include: headache, facial pain, a thick nasal discharge, congestion, and cough. The treatment includes antibiotic therapy, increasing oral fluids, and pain medication if needed. Nose spray decongestants (Afrin, Juan Carlos- Synephrine) and oral decongestants may be needed to reduce congestion and drainage. Rarely the sinus must be irrigated to remove the infected material. Sinusitis can lead to serious complications by spreading to other areas such as the eye or brain. Please call your doctor or return here right away if you have any of the following more serious symptoms: - Unusual swelling around the eye or trouble seeing. - Increasing pain, severe headache, or toothache. - Nausea, vomiting, or unusual drowsiness. Referring Provider: SELF [200] Allergies As of Date: 06/12/2017 Noted Allergy Reaction SULFA (SULFONAMIDE ANTIBIOTICS) 10/31/2004 2 - Rash Date Reviewed: 06/12/2017 Reviewed by: Renato (Gayle) - Fully Assessed Reason for Visit: AYON, sinus pressure and congestion [Other] Cmt: x 2 days- has had URI symptoms for a few weeks but last 2 days she thinks it is becoming a sinus infection Primary Visit Diagnosis:Bacterial sinusitis [J32.9, B96.89] Order(s):amoxicillin-clavulanic acid (AUGMENTIN) 875-125 mg per tabletTake 1 tablet by mouth twice daily for 10 days.Disp: 20 tabletRfl: 0 Prescriptions as of 06/12/2017 Sig: IBUPROFEN 200 MG CAPSULE Take by mouth as needed. * BUPROPION HCL 100 MG TABLET Take 100 mg by mouth twice da* * CLONAZEPAM 0.5 MG TABLET Take 0.5 mg by mouth twice da* AMOXICILLIN 875 MG-POTASSIUM * Take 1 tablet by mouth twice * NAPROXEN SODIUM 220 MG CAPSULE Take by mouth as needed. PHENAZOPYRIDINE 200 MG TABLET Take 0.5 tablets by mouth thr* ESTRADIOL 1 MG TABLET Take 1 tablet by mouth once d* NORETHINDRONE ACETATE 5 MG TA* Take twice daily until bleedi* * MULTIVITAMIN TABLET Take 1 tablet by mouth once d* Problem List As Of Date: 06/12/2017 (None) Other instructions from your clinician: SINUSITIS: You have sinusitis, an infection of the sinus cavities around the nose. This infection usually follows a respiratory illness; it can also be related to allergies, changes in atmospheric pressure (flying, diving), or anything that blocks nasal drainage. Symptoms include: headache, facial pain, a thick nasal discharge, congestion, and cough. The treatment includes antibiotic therapy, increasing oral fluids, and pain medication if needed. Nose spray decongestants (Afrin, Juan Carlos-Synephrine) and oral decongestants may be needed to reduce congestion and drainage. Rarely the sinus must be irrigated to remove the infected material. Sinusitis can lead to serious complications by spreading to other areas such as the eye or brain. Please call your doctor or return here right away if you have any of the following more serious symptoms: - Unusual swelling around the eye or trouble seeing. - Increasing pain, severe headache, or toothache. - Nausea, vomiting, or unusual drowsiness. Prescriptions ordered this encounter Disp Refills Start End AMOXICILLIN 875 MG-POTASSIUM CLAVULA* 20 t* 0 06/12/2017 06/22/2017 Route: ORAL Sig: Take 1 tablet by mouth twice daily for 10 days. Letter Text Renato Eldridge CNP Urgent Care [address] [facility] [address] Dept: [phone] 06/12/2017 Yu Caldwell [address] [facility] [address] To Whom it May Concern: This is to certify that Yu Von Caldwell was seen at our office for medical care. Yu may return to work on 06/14/2017. If you have any questions please feel free to call. Sincerely: Renato Eldridge CNP Encounter Status:Closed by RENATO ELDRIDGE CNP on 06/12/17 ALLERGIES ALLERGIES DATE TYPE / CODE NAME / CODE REACTION SEVERITY SOURCE 03/04/2018 Drug Sulfa Swelling Unknown [facility] Repository CT) [id number](RX NORM) 10/31/2004 Drug SULFA RASH [facility] Class/746505 (SULFONAMIDE [place] 003(SNOMED ANTIBIOTICS) Repository CT) ENCOUNTERS ENCOUNTERS ADMIT/DISCHARGE ACCOUNT ADMITTING ENCOUNTER LOCATION SOURCE NUMBER CLASS 03/04/2018/03/05/20 [id number] Emergency [address] ing:ED Repository 10/14/2017/10/15/19 [id number] Emergency [address] ing:ED Repository 07/01/2017 [id number] Ambulatory [facility] ing:LABSPEC Repository 07/01/2017/07/02/19 [id number] Ambulatory BMSBuilding:B [address] Repository 06/14/2017 [id number] Ambulatory [facility] ing:SL Repository 06/12/2017/06/14/19 [id number] Ambulatory [address] Repository 05/31/2017 [id number] Ambulatory [facility] ing:SL Repository PAYERS PAYERS ENCOUNTER GUARANTOR PAYER SUBSCRIBER SOURCE 03/04/2018 YU D Primary NOT GIVENUNK [place] [id number] Insurance:SELF PAY [place], [place] Number: Effective Repository [id number]: ([phone]) Date:2018-03-04 [phone] () 10/14/2017 YU D Primary YU D Terri [id number] Insurance:CARESOURCEP TXSHABANADOB: [facility] Number: [id number] [id number] Repository [address]Vsc: ([phone]) Date:2017-10-14 O [phone] () [address]ATTN: [place] [address]ZC: 10/14/2017 Secondary NOT GIVENUNK [place] Insurance:[facility]LF [facility]Y [facility] Number: Effective Repository Date:2017-10-14 07/01/2017 YU D Primary YU D [place] [id number] Insurance:CARESOURCEP GAUMERDOB: [facility] Number: [id number], [place] [id number] Repository [address]Xhe: ([phone]) Date:2017-07-01P O [phone] () [address]ATTN: [place] [address]OA: 07/01/2017 Secondary NOT GIVENUNK [place] Insurance:SELF PAY [facility] Number: Effective Repository Date:2017-07-01 07/01/2017 YU D Primary YU D [place] [id number] Insurance:CARESOURCEP GAUMERDOB: [facility] olic Number: [id number], [place] [id number] Repository [address]Sgo: ([phone]) Date:2017-06-27P O [phone] () [address]ATTN: [place] [address]AG: 07/01/2017 Secondary NOT GIVENUNK [place] Insurance:SELF PAY [facility] Number: Effective Repository Date:2017-07-01 06/14/2017 YU D Primary YU D Terri [id number] Insurance:CARESOURCEP GAUMERDOB: [facility] [place] [facility] Number: [id number], [place] [id number] Repository [address]Flw: ([phone]) Date:2017-05-22P O [phone] () [address]ATTN: [place] [address]DA: 06/14/2017 Secondary NOT GIVENUNK [place] Insurance:SELF PAY [facility] Number: Effective Repository Date:2017-05-22 05/31/2017 Yu Primary Yu [place] [id number] Insurance:CARESOURCEP GaumerDOB: [facility] clariic Number: [id number], [place] [id number] Repository [address]Vld: ([phone]) Date:2017-05-22P O [phone] () [address]ATTN: [place] [address]HA: 05/31/2017 Secondary NOT GIVENUNK Terri Insurance:SELF PAY [facility] Number: Effective Repository Date:2017-05-22
== END 2018-03-05 08:10 ==
LOC: ED 12:22
PROVIDERS: Emergency Medicine; Emergency Provider Emergency Medicine; Family Provider Family Medicine; PCP Family Medicine
DX: R45.851 Suicidal ideations (principal); F32.9 Major depressive disorder, single episode, unspecified; Z79.899 Other long term (current) drug therapy
CPT/HCPCS: 80048; 80076; 80307; 80320; 84703; 85025; 93005; 99282; G0480

== ENCOUNTER → 2018-12-28 | Outpatient (CLI) | payer SELFPAY ==
[2018-12-28 13:48] VITALS: BMI 27.4
== END | disposition home or self-care (01) ==
PROVIDERS: Family Provider Family Medicine; PCP Family Medicine; Referring Provider Physician Assistant Medical; Visit Provider Physician Assistant Medical
DX: J02.9 Acute pharyngitis, unspecified (principal)
CPT/HCPCS: 87070

== ENCOUNTER → 2019-09-24 | Outpatient (CLI) | payer BC, SELFPAY ==
[2018-12-28 13:48] VITALS: BMI 27.4
[2019-09-24 11:36] LABS: Absolute Lymphocyte Count 1.65 X10^3/uL (0.83-4.51); Absolute Neutrophil Count 2.6 X10^3/uL (2.0-7.7); Basophil# 0.03 X10^3/uL; Basophil% 0.6 % (0-1); Eosinophil# 0.22 X10^3/uL; Eosinophils% 4.5 % (0-5); Hematocrit 41.2 % (37-47); Hemoglobin 13.5 g/dL (12.0-15.0); Lymphocyte # 1.65 X10^3/ul (4.0); Lymphocyte % 33.5 % (19-41); Mean Corp Hgb Conc 32.8 g/dL (32-36); Mean Corpuscular Hgb 32.1 pg (27.0-32.0); Mean Corpuscular Volume 97.9 fL (81-99); Mean Platelet Vol. 10.1 fl (6.2-12.0); Monocyte# 0.45 X10^3/uL; Monocyte% 9.1 % (0-10); NRBC Flagged by Analyzer 0 % (0-5); Neutrophil # 2.55 X10^3/uL (2.7-7.7); Neutrophil % 51.9 % (47-70); Platelet Count 173 K/mm3 (150-450); RBC Distribution Width CV 12.1 % (11.6-14.6); RBC Distribution Width SD 44.1 fl (35.1-43.9); Red Blood Count 4.21 M/mm3 (4.2-5.4); White Blood Count 4.9 K/mm3 (4.4-11.0)
[2019-09-24 12:08] LABS: Progesterone Level 0.39 ng/mL (See Comment); Vitamin B12 988 pg/mL (211-911); Vitamin D,25 Hydroxy 43.5 ng/mL
[2019-09-24 12:10] LABS: ALB/GLOB Ratio 1.2 RATIO (0.9-2.4); AST(SGOT) 16 U/L (15-37); Alanine Aminotransfer ALT/SGPT 28 U/L (13-56); Albumin, Serum 3.9 g/dL (3.2-5.0); Alkaline Phosphatase 54 U/L (45-117); Anion Gap 4 (5-15); BUN 10 mg/dL (7-18); BUN/Creat Ratio 13.8 RATIO (10-20); Calcium,Total 8.7 mg/dL (8.5-10.1); Chloride 106 mmol/L (98-107); Cholesterol 215 mg/dL (200); Creatinine, Serum 0.72 mg/dL (0.55-1.02); EST Glomerular Filtration Rate 94 mL/min (>60); Est Glom Filt Rate - Afr Amer 113 mL/min (>60); Estradiol 59.3 pg/mL; Free T3 2.3 pg/mL (2.18-3.98); Globulin 3.3 g/dL (2.2-4.2); Glucose 93 mg/dL (74-106); High Density Lipoprotein 57 mg/dL; Potassium 4.1 mmol/L (3.5-5.1); Protein, Total 7.2 g/dL (6.4-8.2); Sodium Level 139 mmol/L (136-145); T4 Free Direct 0.72 ng/dL (0.76-1.46); Thyroid Stim Hormone (TSH) 0.69 uIU/mL (0.358-3.74); Triglycerides 131 mg/dL; Very Low Density Lipoprotein 26 mg/dL (5-40)
== END | disposition home or self-care (01) ==
LOC: LAB 11:09
PROVIDERS: PCP Family Medicine; Referring Provider Family Medicine; Visit Provider Family Medicine
DX: E55.9 Vitamin D deficiency, unspecified (principal); D64.9 Anemia, unspecified; N95.1 Menopausal and female climacteric states; E78.5 Hyperlipidemia, unspecified; R53.83 Other fatigue; Z51.81 Encounter for therapeutic drug level monitoring
CPT/HCPCS: 80053; 80061; 82306; 82607; 82670; 84144; 84439; 84443; 84481; 85025

== ENCOUNTER → 2019-11-26 | Outpatient (CLI) | payer BC, SELFPAY ==
[2018-12-28 13:48] VITALS: BMI 27.4
== END | disposition home or self-care (01) ==
LOC: BFHLAB 14:57
PROVIDERS: PCP Family Medicine; Visit Provider Family Medicine
DX: E30.0 Delayed puberty (principal)
CPT/HCPCS: 87086; 87088

== ENCOUNTER 2020-11-28 08:08 | Day surgery (SDC) | payer BC, SELFPAY ==
[2020-08-17 13:14] VITALS: BMI 27.4
[2020-11-28] VITALS (8 sets, daily range): BP systolic 82–119; BP diastolic 55–83; PULSE 64–90; RESP 16; TEMP 36.4–36.6; O2SAT 98–100; BMI 29.9
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
--- NOTE | 2020-11-28 08:30 | COLBX_PTH ---
PATIENT: YU CALDWELL LOC: EN U#:[id number] AGE/SX: 45/F ROOM: RE11/28/[address]: Dr. Christine Wing MD : 1975 BED: DIS: 11/28/2020 SPEC #: [id number] RECD: 11/28/20 10:05 STATUS: ANNA RELauro #: [id number] ALVERTO: 11/28/20 08:[address]: Christine Wing DEPT: SURGICAL PATHOLOGY RECD BY: Maryellen Maurice ENTERED: 11/28/20 12:43 SP TYPE: COLON BX OTHR DR: Dr. Hollie Salazar, DO Tissues: COLON BIOPSY Procedures: Surgery Specimen Level IV HEADER OPERATION: Colonoscopy (MAC) PRE-OP DIAGNOSIS: Constipation, hemorrhoids, diarrhea TISSUE SUBMITTED: Random colonic biopsy MICROSCOPIC DIAGNOSIS Colon, random biopsy: Fragments of colonic mucosa, no pathologic diagnosis. SJ:dmitri 11/29/2020 MICROSCOPIC DESCRIPTION Slides are reviewed. GROSS DESCRIPTION Received in fixative is one container labeled with the patient's name and designated random colonic biopsy. The specimen consists of multiple irregular fragments of light vicente soft tissue that in aggregate measure 0.5 x 0.5 x 0.1 cm. The specimen is totally submitted in one cassette. / SJ:rg 11/28/20 TC:4 CPT: 04785
[2020-11-28] MEDS: Lactated Ringers 1,000 ML 100 ML IV (08:33)
--- NOTE | 2020-11-28 09:30 | OP.COLON_ITS ---
Patient Name: Delfina Feliciano Procedure Date: 11/28/2020 8:22 AM Date of : 1975 Age: 45 Procedure: Colonoscopy Indications: Diarrhea, Constipation Providers: Christine Wing MD Medicines: Monitored Anesthesia Care Patient Profile: This is a 45 year old female. Last Colonoscopy: none. The patient's first colonoscopy is today. Complications: No immediate complications. Procedure: Pre-Anesthesia Assessment: - Prior to the procedure, a History and Physical was performed, and patient medications and allergies were reviewed. The patient's tolerance of previous anesthesia was also reviewed. The risks and benefits of the procedure and the sedation options and risks were discussed with the patient. All questions were answered, and informed consent was obtained. Prior Anticoagulants: The patient has taken no previous anticoagulant or antiplatelet agents. ASA Grade Assessment: Per anesthesia. After reviewing the risks and benefits, the patient was deemed in satisfactory condition to undergo the procedure. After I obtained informed consent, the scope was passed under direct vision. Throughout the procedure, the patient's blood pressure, pulse, and oxygen saturations were monitored continuously. The colonoscope was introduced through the anus and advanced to the cecum, identified by the appendiceal orifice, ileocecal valve and palpation. The colonoscopy was performed without difficulty. The patient tolerated the procedure well. The quality of the bowel preparation was good. Scope In: 8:58:23 AM Scope Withdrawal Time 0 hours 12 minutes 0 seconds Scope Out: 9:18:58 AM Total Procedure Duration Time 0 hours 20 minutes 35 seconds Findings: Hemorrhoids were found on perianal exam-small internal grade I. The colon (entire examined portion) appeared normal. Three random biopsies were obtained with cold forceps for microbiology in the rectum, in the descending colon and in the ascending colon. Impression: - Hemorrhoids found on perianal exam. - The entire examined colon is normal. - Three random biopsies were obtained in the rectum, in the descending colon and in the ascending colon. Recommendation: - Discharge patient to home. - Resume previous diet. - Continue present medications. - Await pathology results. - Repeat colonoscopy in 10 years for screening purposes. Procedure Code(s): --- Professional --- 26680, Colonoscopy, flexible; with biopsy, single or multiple Diagnosis Code(s): --- Professional --- K64.9, Unspecified hemorrhoids R19.7, Diarrhea, unspecified K59.00, Constipation, unspecified CPT copyright 2017 [employer]. All rights reserved. The codes documented in this report are preliminary and upon line controller review may be revised to meet current compliance requirements. MD Christine Horvath MD 11/28/2020 9:29:53 AM This report has been signed electronically. Number of Addenda: 0 Note Initiated On: 11/28/2020 8:22 AM
--- NOTE | 2020-11-28 09:31 | OP.CCLET_ITS ---
11/28/2020 Hollie Salazar [address] [place] [address] Re : Colonoscopy procedure for Delfina Feliciano Dear Dr. Salazar This procedure was performed on Saturday, November 28, 2020. My impressions and recommendations are as follows: Impressions : - Hemorrhoids found on perianal exam. - The entire examined colon is normal. - Three random biopsies were obtained in the rectum, in the descending colon and in the ascending colon. Recommendations : - Discharge patient to home. - Resume previous diet. - Continue present medications. - Await pathology results. - Repeat colonoscopy in 10 years for screening purposes. My findings are described in the full procedure note, which is enclosed. If I can be of further assistance, please feel free to contact me at Doctor phone number(s): , Work: . Sincerely, MD Christine Horvath MD 11/28/2020 9:29:53 AM This report has been signed electronically.
== END 2020-11-28 10:22 | disposition home or self-care (01) ==
LOC: EN 08:14 → AC 08:14
PROVIDERS: PCP Family Medicine; Referring Provider Family Medicine; Visit Provider Surgery
PROC: 0DJD8ZZ Inspection of Lower Intestinal Tract, Via Natural or Artificial Opening Endoscopic (ICD-10-PCS; CPT 45378; principal; 2020-11-28 08:25)
DX: K64.0 First degree hemorrhoids (principal); K59.00 Constipation, unspecified; R19.7 Diarrhea, unspecified; K21.9 Gastro-esophageal reflux disease without esophagitis; F32.9 Major depressive disorder, single episode, unspecified; F41.9 Anxiety disorder, unspecified; Z79.899 Other long term (current) drug therapy; Z87.891 Personal history of nicotine dependence; Z80.0 Family history of malignant neoplasm of digestive organs
CPT/HCPCS: 45380; 88305; J7120; J2405

== ENCOUNTER 2021-05-17 11:40 | Outpatient (CLI) | payer BC, SELFPAY ==
[2021-05-17 13:26] LABS: HIV - WCH Non-Reactive (Nonreactive); Hepatitis B Surface Antigen Non-Reactive (Nonreactive); Hepatitis C Antibody Non-Reactive (Nonreactive); Syphilis Antibodies Non-reactive
[2021-05-18 09:23] LABS: HSV 1 IgG < 0.91 index (0.00-0.90); HSV 2 IgG < 0.91 index (0.00-0.90)
[2021-05-21 10:07] LABS: Chlamydia By Nucleic Acid AMP Negative (Negative)
[2021-05-21 10:48] LABS: Gonococcus By Nucleic Acid AMP Negative (Negative)
== END 2021-05-17 23:59 | disposition home or self-care (01) ==
LOC: LAB 11:41
PROVIDERS: Nurse Practitioner Women's Health; PCP Family Medicine; Visit Provider Obstetrics & Gynecology
DX: Z20.2 Contact with and (suspected) exposure to infections with a predominantly sexual mode of transmission (principal); N76.0 Acute vaginitis
CPT/HCPCS: 36415; 86695; 86696; 86703; 86780; 86803; 87070; 87205; 87340; 87491; 87591

== ENCOUNTER 2021-06-14 08:12 | Outpatient (CLI) | payer BC, SELFPAY ==
--- NOTE | 2021-06-14 08:13 | BI_ITS ---
MAMMOGRAPHY - BILATERAL SCREENING REASON FOR EXAM: Female, 46 years old. Routine annual screening examination. PERTINENT HISTORY: Grandmother with breast cancer. Remote left excisional breast biopsy. TECHNIQUE: Digital bilateral breast janie (3D mammographic acquisition) in the CC and MLO projections. 2-D mediolateral oblique (MLO) and craniocaudad (CC) views of both breasts were obtained. CAD: Full Field Digital Mammography with Computer Added Detection was performed. COMPARISON: None. Baseline examination. FINDINGS: Breast Composition: The breasts are heterogeneously dense, which may obscure small masses. There are no dominant masses or suspicious calcifications. No other significant abnormalities are identified. BI/SCRN MAMM (CAD)W/JANIE BILAT IMPRESSION: Negative screening mammogram. Yearly followup mammogram recommended. (A) ASSESSMENT CATEGORY: BIRADS Category 1: Negative. A letter regarding these results will be sent to the patient by the facility within 30 days. Approximately 10% of breast cancers are not detected by mammography. A normal mammogram should not delay biopsy of a clinically suspicious abnormality. [id number] Electronically Signed: Navin Ham MD at 9:18 EST ,
== END 2021-06-14 23:59 | disposition home or self-care (01) ==
LOC: OPBI 08:12
PROVIDERS: PCP Family Medicine; Visit Provider Nurse Practitioner Women's Health
DX: Z12.31 Encounter for screening mammogram for malignant neoplasm of breast (principal)
CPT/HCPCS: 77063; 77067